=== PATIENT | male | born 1965 | race Caucasian/White ===

== ENCOUNTER 2017-05-17 02:18 | Inpatient (IN) | payer OTHER ==
[~2017-05-17] VITALS: Ht 182.9 cm; Wt 130.2 kg
[~2017-05-17 02:18] MED LIST: ASPIRIN EC81 M1 PO; ATORVASTATIN CA20 M1 PO; LISINOPRIL10 M1 PO; VITAMIN D1000 UNIT PO
--- NOTE | 2017-05-17 10:17 | Operative Report ---
Operative/Inv Procedure Report Surgery Date: 05/17/17 Name of Procedure: Right total knee arthroplasty Pre-Operative Diagnosis: Right knee degenerative joint disease Post-Operative Diagnosis: Right knee degenerative joint disease Estimated Blood Loss: 50ml to 100ml Surgeon/Laborer General: Rita CHEEMA,Rolly Aviles APRN Anesthesia: block, final Implants: [employer] Orin II right nonporous tibial baseplate size 6. Size 7 right cruciate-retaining Legion Oxinium femoral component. 23 mm Orin II biconvex patellar component. Size 56 9 mm Legion cruciate retaining XLPE high flexion articular insert. Drains: Hemovac Complications: None Condition: Stable to PACU Operative Indication: This is a 51-year-old male with long-standing right knee pain as failed conservative care. Risks and benefits of the procedure were discussed with the patient at length. Risks include but are not limited to nerve damage, muscle damage, infection, blood loss, blood clots, pulmonary embolus, and even . The patient agreed to the above risks and elected to proceed with surgery. Operative/Procedure Note Note: The patient was taken to the operating room. Anesthesia was induced after the timeout was performed. The lower extremity was prepped and draped in the normal sterile fashion. IV antibiotics were given prior to incision. The site marking was visualized prior to incision. After the leg was prepped and draped, an esmarch was used to exsanguinate the extremity. The tourniquet was inflated. A midline incision was made proximal to the patella extending down to the tibial tubercle. A medial parapatellar approach was then made. The skin was retracted and the extensor mechanism was incised. The knee was taken down into full extension. The patellar fat pad was resected. The medial retinaculum was then taken down. The synovium over the distal femur was then resected. The patella was everted and the knee was flexed up. The lateral meniscus was then excised. The ACL was removed. A drill was then used to open up the distal femur. The intramedullary guide was then applied. A 6 distal femoral cut was then made. The femur was then sized. The chamfer guide was then applied. The anterior, posterior, and chamfer cuts were then made while protecting the patellar tendon with a Hohmann retractor and the medial collateral ligament with a Z retractor. A pickle fork was then used to deliver the tibia. The extramedullary tibial guide was then applied. The proximal tibial cut was made. The medial and lateral meniscus were then excised. The osteophytes were removed with a Rongeur. The tibia was sized and the trial base plate was then pinned in place. A trial femoral component was placed and a trial polyethylene insert was then applied as well. The knee was taken through a range of motion and was noted to be quite stable. The patella was then everted, sized, and then reamed. A trial patellar component was placed and the knee was taken through range of motion. The patella was noted to be quite stable. All trial instruments were then removed. The knee was copiously irrigated. Retractors were placed in the final components were then cemented in. A trial polyethylene insert was then placed. After the cement hardened, the excess cement was removed. The trial poly-insert was then removed. The knee was copiously irrigated. The final poly insert was inserted. The tourniquet was let down. Any bleeding vessels were identified and cauterized. A 1/8 inch Hemovac drain was then placed. The extensor mechanism was closed with #1 Vicryl suture in a simple interrupted fashion. The skin was closed with 2-0 Vicryl suture. A running subcuticular 4-0 Monocryl stitch was then placed. Dermabond was applied. A dry sterile dressing was placed and patient was transferred to PACU in stable condition.
--- NOTE | 2017-05-17 14:26 | Admission Core Measures ---
Acute Coronary Syndrome (CM) ACS Core Measures Acute Coronary Syndrome Diagnosis No Congestive Heart Failure (NEW) CHF Core Measures Congestive Heart Failure Diagnosis No Cerebrovascular Accident (NEW) CVA Core Measures CVA/TIA Diagnosis No Venous Thromboembolism VTE Core Marissa (View Protocol) VTE Risk Factors Surgery No Mechanical VTE Prophylaxis d/t N/A MechProphylax Ordered No VTE Pharm Prophylaxis d/t NA PharmProphylax ordered Problem List As ranked by this Provider includes Assessment & Plan 1. Unilateral primary osteoarthritis, right knee HOME MEDS Home Med List Aspirin (Ecotrin*) 81 MG TABLET.DR 1 TAB PO DAILY HEART HEALTH (Reported) Atorvastatin Calcium 20 MG TABLET 1 TAB PO DAILY CHOLESTEROL (Reported) Cholecalciferol (Vitamin D3) (Vitamin D) 1,000 UNIT TABLET 1 TAB PO DAILY SUPPLEMENT (Reported) Lisinopril 10 MG TABLET 1 TAB PO DAILY BLOOD PRESSURE (Reported)
--- NOTE | 2017-05-17 14:30 | Patient Discharge Instructions ---
Discharge Instructions General Discharge Information You were seen/treated for: Right knee pain related to unilateral primary osteoarthritis You had these procedures: Right total knee replacement Watch for these problems: Increasing pain despite the use of pain medication. Inability to bear weight on surgical leg Increasing redness, warmth and swelling. Drainage of any type from incision Fever greater than 101.5 Do not soak the wound: Yes No bath, but you may shower: Yes Other wound care: Keep wound clean and dry Do not soak wound for minimum of 6 weeks unless otherwise indicated by Dr. Salinas No lotions or ointments of any type on or near incision. No exceptions. Diet Continue normal diet: Yes Recommended Diet: Regular Activity Full Activity/No Limits: No Activity Self Limited: Yes Pounds, do NOT lift more than: 10 Activity Limited to: Weight bear as tolerated Acute Coronary Syndrome Inclusion Criteria At DC or during hospital stay patient has or had the following: ACS DIAGNOSIS No Discharge Core Measures Meds if any: Prescribed or Continued at Discharge Meds if any: NOT Prescribed or Continued at Discharge Congestive Heart Failure Inclusion Criteria At DC or during hospital stay patient has or had the following: CHF DIAGNOSIS No Discharge Core Measures Meds if any: Prescribed or Continued at Discharge Meds if any: NOT Prescribed or Continued at Discharge Cerebrovascular accident Inclusion Criteria At DC or during hospital stay patient has or had the following: CVA/TIA Diagnosis No Discharge Core Measures Meds if any: Prescribed or Continued at Discharge Meds if any: NOT Prescribed or Continued at Discharge Venous thromboembolism Inclusion Criteria VTE Diagnosis No VTE Type NONE VTE Confirmed by (Test) NONE Discharge Core Measures - Per Current guidelines, there needs to be overlap - treatment for the first 5 days of Warfarin therapy. - If discharged on Warfarin prior to 5 days of - overlap therapy, the patient will need to be - assessed for post discharge needs including - *Post discharge parental anticoagulation - *Warfarin and/or parental anticoagulation education - *Follow up date to check INR post discharge At least 5 days overlap therapy as Inpatient No Meds if any: Prescribed or Continued at Discharge Note: Overlap Therapy is Warfarin and Anticoagulant Meds if any: NOT Prescribed or Continued at Discharge
--- NOTE | 2017-05-17 14:31 | Surgical Discharge Summary ---
Visit Information Visit Dates Admission Date: 05/17/17 Discharge Date: 05/19/17 History of Present Illness Chief Complaint: Right knee pain related to unilateral primary osteoarthritis Surgical History Pertinent Surgical History: knee replacement Psychosocial History What is Your Primary Language? Thai Review of Systems: see H&P Hospital Course Course Attending Physician: Rolly Salinas MD Primary Care Physician: Genie Gamboa APRN Hospital Course: Patient was admitted to the hospital on 05/17/2017 for an elective right total knee replacement. He tolerated the procedure well and was transferred to a general surgical floor. His diet was advanced and tolerated. He voided spontaneously. He was evaluated and treated by physical therapy. At the time of hospital discharge, his vital signs were stable and within normal limits, his neurovascular status was intact, and his pain was controlled with po pain medications. He was deemed appropriate for discharge. Allergies: Coded Allergies: NO KNOWN ALLERGIES (01/22/12) Disposition Summary Disposition Principal Diagnosis: Right knee unilateral primary osteoarthritis Additional Diagnosis: None Discharge Disposition: home health services Discharge Instructions General Discharge Information Code Status: Full Code Patient's Diet: Regular, advance as tolerated Patient's Activity: WBAT Follow-Up Instructions/Appts: Follow up with Dr. Salinas in 2 weeks from date of surgery Medications at Discharge Discharge Medications: Stop taking the following medications: Aspirin (Ecotrin*) 81 MG TABLET. ORAL DAILY Continue taking these medications: Lisinopril (Lisinopril) 10 MG TABLET 1 Tablet ORAL DAILY Atorvastatin Calcium (Atorvastatin Calcium) 20 MG TABLET 1 Tablet ORAL DAILY Cholecalciferol (Vitamin D3) (Vitamin D) 1,000 UNIT TABLET 1 Tablet ORAL DAILY
[2017-05-17 16:16] VITALS: BP 132/90
--- NOTE | 2017-05-17 16:31 | PN- Orthopedic ---
Subjective Subjective: Patient states he feel well. He reports residual numbness in his foot, denies tingling, chest pain, shortness or breath or trouble breathing. States pain is well controlled. Offer no other complaints. Objective Vital Signs and I&Os Vital Signs Date Time Temp Pulse Resp B/P B/P Pulse O2 O2 Flow FiO2 Mean Ox Delivery Rate 05/17 1616 97.6 58 18 132/90 93 Room Air Intake & Output 05/17 1600 05/17 0800 05/17 0000 05/16 1600 05/16 0800 05/16 0000 Intake Total Output Total Balance Patient 289 lb Weight Physical Exam: Gen - resting comfortably in bed awake an alert accompained by family in NAD Cardiac - S1S2 noted, RRR Lungs - Good air entry, CTAB Ext - On Q in place, RLE dressing with dash and RUTSY drain in place with serosanguineous drainage, moves all extremities, motor and sensation intact. Alps in place, no calf tenderness - yan in place with clear urine Current Medications: Current Medications Sig/Arnav Start time Last Medication Dose Route Stop Time Status Admin Acetaminophen 1,000 MG Q6H 05/17 2200 UNVr IV 05/18 1601 Atorvastatin Calcium 20 MG DAILY 05/18 1000 DC PO Atorvastatin Calcium 20 MG DAILY 05/18 1000 UNVr PO Cefazolin Sodium 3 MG Q8 05/17 2200 UNVr IV 05/18 0601 Cefazolin Sodium 2,000 MG ONCE 05/17 0000 DC IV 05/17 2359 Dextrose/Sodium 1,000 ML .[id number] 05/17 1615 UNVr Chloride IV Docusate Sodium 100 MG BID 05/17 2200 AC PO Enoxaparin Sodium 40 MG DAILY 05/18 1000 AC SC Fentanyl Citrate 100 MCG .STK-MED ONE 05/17 0635 DC IM 05/17 0636 Ketorolac 30 MG Q6 05/17 1800 AC Tromethamine IV 05/20 1201 Lisinopril 10 MG DAILY 05/18 1000 DC PO Lisinopril 10 MG DAILY 05/18 1000 AC PO Midazolam HCl 4 MG .STK-MED ONE 05/17 0636 DC IM 05/17 0637 Morphine Sulfate 10 MG .STK-MED ONE 05/17 0657 DC IV 05/17 0658 Ondansetron HCl 4 MG Q6P PRN 05/17 1615 AC IV Oxycodone HCl 5 MG Q4P PRN 05/17 1615 AC PO Oxycodone HCl 10 MG Q4P PRN 05/17 1615 AC PO Polyethylene Glycol 17 GM DAILY 05/18 1000 AC PO Promethazine HCl 12.5 MG Q6P PRN 05/17 1615 AC IV 05/24 1414 Ropivacaine 500 ML ONCE ONE 05/17 1430 DC ON-Q Ball 1 BAG INJ 05/19 1629 Scopolamine HBr 0 .STK-MED ONE 05/17 0911 DC TOP Tranexamic Acid 2,000 MG .STK-MED ONE 05/17 0635 DC IV 05/17 0636 Assessment/Plan Assessment/Plan 51 y/o M POD 0 s/p R TKR PT eval, WBAT Advance diet as tolerated Cont IVF Cont pain regimen Cont postop abx - ancef x2 RUSTY to bulb suction Monitor I&Os Home meds on board DVT ppx - lovenox 40 in am D/c yan in am Encourage IS Core Measures Venous Thromboembolism VTE Risk Factors Surgery No Mechanical VTE Prophylaxis d/t N/A MechProphylax Ordered No VTE Pharm Prophylaxis d/t NA PharmProphylax ordered
[2017-05-17 18:00] VITALS: BP 120/68
[2017-05-17 21:22] VITALS: BP 129/75
[2017-05-17 22:00] VITALS: BP 134/76
[2017-05-18 07:11] VITALS: BP 140/83
--- NOTE | 2017-05-18 08:12 | PN- Orthopedic ---
Subjective Subjective: POD #1 s/p right TKR. Resting comfortably in bed. No N/V, F/C, CP/SOB. Tolerating a regular diet. IVF running. Yet to ambulate. Voiding via yan catheter. Objective Vital Signs and I&Os Vital Signs Date Time Temp Pulse Resp B/P B/P Pulse O2 O2 Flow FiO2 Mean Ox Delivery Rate 05/18 0711 98.1 79 20 140/83 95 Room Air 05/17 220 97.9 81 20 134/76 93 Room Air 05/17 2122 98.2 85 20 129/75 94 Room Air 05/17 1800 98.5 86 18 120/68 94 Room Air 05/17 1616 97.6 58 18 132/90 93 Room Air Intake & Output 05/18 1600 05/18 0800 05/18 0000 05/17 1600 05/17 0800 05/17 0000 Intake Total 720 520 Output Total 980 1130 Balance -260 -610 Intake, IV 600 400 Intake, Oral 120 120 Output, 80 130 Drainage Output, Urine 900 1000 Patient 287 lb Weight Weight Reported by Patient Measurement Method Physical Exam: Gen: AAOx3 in NAD Cor: S1+S2+ Lungs: CTA dillon Abd: soft, NT, ND, +BS x4 Ext: no edema or calf tenderness to dillon lower extremities. Onq pump in place. RUSTY holding suction. Output 210 ml/24 hours (70/60/80). Able to dorsiflex and plantar flex without difficulty. Sensation grossly intact. Palpable DP/PT pulses dillon. Dressing C/D/I. Current Medications: Current Medications Sig/Arnav Start time Last Medication Dose Route Stop Time Status Admin Acetaminophen 1,000 MG Q6H 05/17 2199 AC 05/18 IV 05/18 1601 0433 Atorvastatin Calcium 20 MG 1700 05/18 1700 AC PO Atorvastatin Calcium 20 MG DAILY 05/18 1000 DC PO Cefazolin Sodium 3 MG Q8 05/17 2200 CAN IV 05/18 0601 Cefazolin Sodium 3,000 MG Q8H 05/17 2199 DC 05/18 Sodium Chloride 100 ML IV 05/18 0629 0632 Cefazolin Sodium 2,000 MG ONCE 05/17 0000 DC IV 05/17 2359 Dextrose/Sodium 1,000 ML .[id number] 05/17 1615 DC 05/17 Chloride IV 1718 Docusate Sodium 100 MG BID 05/17 2200 AC 05/17 PO 2209 Enoxaparin Sodium 40 MG DAILY 05/18 1000 AC SC Hydromorphone HCl 2 MG .STK-MED ONE 05/17 1459 DC IM 05/17 1500 Hydromorphone HCl 2 MG .STK-MED ONE 05/17 1414 DC IM 05/17 1415 Hydromorphone HCl 2 MG .STK-MED ONE 05/17 1339 DC IM 05/17 1340 Ketorolac 30 MG Q6 05/17 1800 AC 05/18 Tromethamine IV 05/20 1201 0631 Lisinopril 10 MG DAILY 05/18 1000 DC PO Lisinopril 10 MG DAILY 05/18 1000 AC PO Meperidine HCl 50 MG .STK-MED ONE 05/17 1500 DC IM 05/17 1501 Meperidine HCl 50 MG .STK-MED ONE 05/17 1339 DC IM 05/17 1340 Midazolam HCl 2 MG .STK-MED ONE 05/17 1047 DC IM 05/17 1048 Ondansetron HCl 4 MG Q6P PRN 05/17 1615 AC IV Oxycodone HCl 5 MG Q4P PRN 05/17 1615 AC PO Oxycodone HCl 10 MG Q4P PRN 05/17 1615 AC 05/18 PO 0637 Polyethylene Glycol 17 GM DAILY 05/18 1000 AC PO Promethazine HCl 12.5 MG Q6P PRN 05/17 1615 AC IV 05/24 1414 Ropivacaine 500 ML ONCE ONE 05/17 1430 DC ON-Q Ball 1 BAG INJ 05/19 1629 Scopolamine HBr 0 .STK-MED ONE 05/17 0911 DC TOP Results Last 48 Hours of Labs: Laboratory Tests 05/18 0658 Chemistry Sodium Pending Potassium Pending Chloride Pending Carbon Dioxide Pending Anion Gap Pending BUN Pending Creatinine Pending BUN/Creatinine Ratio Pending Hematology CBC w Diff Pending WBC Pending RBC Pending Hgb Pending Hct Pending MCV Pending MCH Pending RDW Pending Plt Count Pending MPV Pending PUBS MCHC Pending Assessment/Plan Assessment/Plan A: POD #1 s/p right TKR. RUSTY x1. AVSS Plan: PT eval today. Lovenox x 5 weeks. Dressing change day #2. Leave island dressing in place. Continue bowel regimen. Continue pain control. Yan to be removed and patient will be due to void. Heplock IVF. Core Measures Venous Thromboembolism VTE Risk Factors Surgery No Mechanical VTE Prophylaxis d/t N/A MechProphylax Ordered No VTE Pharm Prophylaxis d/t NA PharmProphylax ordered
[2017-05-18 08:18] LABS: ABSOLUTE BASOPHIL COUNT 0 /CUMM (0.0-0.2); ABSOLUTE EOSINOPHIL COUNT 0 /CUMM (0.0-0.7); ABSOLUTE GRANULOCYTE CT 11.5 /CUMM (1.4-6.5); ABSOLUTE LYMPH COUNT 1.3 /CUMM (1.2-3.4); ABSOLUTE MONOCYTE COUNT 1.3 /CUMM (0.10-0.60); BASOPHIL % 0 % (0.0-2.0); EOSINOPHIL % 0 % (0-5); GRANULOCYTE % 81.2 % (42.2-75.2); MEAN CORPUSCULAR HGB 29.4 PG (27.0-31.0); MEAN CORPUSCULAR HGB CONC 33.4 G/DL (33.0-37.0); MEAN PLATELET VOLUME 8.4 FL (7.4-10.4); PLATELET COUNT 223 /CUMM (130-400); RBC DISTRIBUTION WIDTH 12.9 % (11.5-14.5); RED BLOOD CELL CT 4.91 /CUMM (4.70-6.10)
[2017-05-18 08:34] LABS: HEMATOCRIT 43.2 % (42-52); WHITE BLOOD CELL COUNT 14.1 /CUMM (4.8-10.8)
[2017-05-18 14:52] VITALS: BP 148/80
[2017-05-18 21:41] VITALS: BP 110/64
[2017-05-19 07:05] VITALS: BP 108/58
[2017-05-19] MEDS ORDERED: DOCUSATE SODIU100 M3 PO (13:11)
[2017-05-19] MEDS ORDERED: OXYCODONE HCL5 M1 PO (13:11)
[2017-05-19] MEDS ORDERED: LOVENOX40 MG/0.1 SC (13:11)
[2017-05-19 13:36] VITALS: BP 114/68
== END 2017-05-19 14:35 | disposition home health service (06) | DRG 470 ==
LOC: SDA 02:18 → EDBEDREQ 14:44 → ENRESERV 14:48 → ENTRNSPT 15:26 → EDTRNSPTSTS 15:29 → 2NB 15:35 → CMPTRNSPT 15:39 → ENPENDDIS 05-19 13:11 → ENTRNSPT 05-19 14:17 → EDTRNSPTSTS 05-19 14:24 → EDTRNSPT 05-19 14:24 → 2NB 05-19 14:35 → CMPTRNSPT 05-19 14:38
PROVIDERS: Nurse Practitioner
PROC: 0SRC069 Replacement of Right Knee Joint with Oxidized Zirconium on Polyethylene Synthetic Substitute, Cemented, Open Approach (ICD-10-PCS; principal; 2017-05-17)
PROC: 3E0T3BZ Introduction of Anesthetic Agent into Peripheral Nerves and Plexi, Percutaneous Approach (ICD-10-PCS; 2017-05-17)
DX: M17.11 Unilateral primary osteoarthritis, right knee (principal); E66.9 Obesity, unspecified; I10 Essential (primary) hypertension; Z68.38 Body mass index [BMI] 38.0-38.9, adult
CPT/HCPCS: 2NBSP; 36415; 82436; 87086; 97110-GO; 97116-GO; 97161-GP; 97530-GO; J0131; J0690; J1650; J1885; J2550; J2795; J7042